=== PATIENT | female | born 2000 | race Caucasian/White ===

== ENCOUNTER → 2022-04-18 12:37 | Outpatient (CLI) | payer BC, SELFPAY ==
--- NOTE | ~2022-04-18 | XR_ITS ---
EXAMINATION: XR chest 2V 04/18/2022 12:55 INDICATION: Wheezing and cough PROCEDURE: Two-view chest COMPARISON: No prior studies for comparison. FINDINGS: The lungs are clear. The cardiomediastinal silhouette is within normal limits. There are no pleural effusions. There is no pneumothorax suspected. IMPRESSION: 1: NO ACUTE CARDIOPULMONARY DISEASE. Reviewed, dictated and finalized at location [facility].
== END ==
PROVIDERS: PCP Pediatrics; Visit Provider Nurse Practitioner Pediatrics
DX: R05.9 Cough, unspecified (principal)
CPT/HCPCS: 71046

== ENCOUNTER → 2022-08-03 08:52 | Outpatient (CLI) | payer BC, SELFPAY ==
--- NOTE | ~2022-08-03 | CT_ITS ---
EXAMINATION: CT sinus wo con DATE: 08/03/2022 09:11 INDICATION: Cough. Chronic sinusitis. TECHNIQUE: Computed tomography (CT) of the paranasal sinuses was performed without contrast. Iterativ e reconstruction technique was employed. Exam dose: 280.01 mGy-cm total exam DLP. COMPARISON: None FINDINGS: Mild leftward bowing of the nasal septum. Mild soft tissue swelling of nasal turbinates, ri ght greater than left. There is minimal thickening of the left frontal sinus. There is prominent patchy opacification of the ethmoid air cells bilaterally. There is mild mucoperio steal thickening of the maxillary sinuses, primarily inferiorly. There is minimal mucoperiosteal thickening of the sphenoid sinuses. There is soft tissue thickening at the maxillary ostium and particularly at the infundibulum and ethm oid bulla bilaterally. The mastoid air cells are normally developed and aerated bilaterally. Middle and inner ear apparatus appear normal bilaterally. IMPRESSION: Mild left frontal, bilateral maxillary, bilateral sphenoid and more prominent bilateral ethmoid sinusitis Partial opacification of the ostiomeatal units bilaterally Reviewed, dictated and finalized at [facility]. Reviewed, dictated and finalized at location A. IMPRESSION: Mild left frontal, bilateral maxillary, bilateral sphenoid and mor e prominent bilateral ethmoid sinusitis Partial opacification of the ostiomeatal units bilaterally
== END ==
PROVIDERS: PCP Pediatrics; Visit Provider Otolaryngology
DX: J32.8 Other chronic sinusitis (principal); M79.89 Other specified soft tissue disorders
CPT/HCPCS: 70486